=== PATIENT | female | born 1975 | race Two or more races ===

== ENCOUNTER 2019-08-17 08:07 | Observation (INO) | payer OTHER ==
[~2019-08-17] VITALS: Ht 167.6 cm; Wt 84.0 kg
[2019-08-17] MEDS ORDERED: ONDANSETRON 2MG/ML, 2ML IVPush ONE (08:30)
[2019-08-17] MEDS ORDERED: SODIUM CHLORIDE FLUSH 10ML SYR IVF ONE (08:30)
[2019-08-17] MEDS ORDERED: ONDANSETRON 2MG/ML, 2ML ONE (08:40)
[2019-08-17] MEDS ORDERED: MORPHINE SULFATE 4 MG/ML, 1ML ONE ×2 (08:41→10:09)
[2019-08-17 08:47] LABS: BASOPHILS # (AUTO) 0.04 x10^3/uL (0-0.1); BASOPHILS % (AUTO) 1 % (0-1); EOSINOPHILS # (AUTO) 0.09 x10^3/uL (0-0.4); EOSINOPHILS % (AUTO) 1 % (1-7); LYMPHOCYTES # (AUTO) 2.03 x10^3/uL (1-3.4); LYMPHOCYTES % (AUTO) 26 % (22-44); MD NO; MEAN CORPUSCULAR HGB CONC 33.4 g/dL (32.4-35.8); MEAN CORPUSCULAR VOLUME 90.1 fL (80-100); MEAN PLATELET VOLUME 8.7 fL (7.4-10.4); MONOCYTES # (AUTO) 0.56 x10^3/uL (0.2-0.8); MONOCYTES % (AUTO) 7 % (2-9); NEUTROPHILS % (AUTO) 65 % (42-75); PLATELET COUNT 222 x10^3/uL (130-400); RED BLOOD COUNT 4.87 x10^6/uL (3.82-5.3); RED CELL DISTRIBUTION WIDTH 13.7 % (9.6-15.2)
[2019-08-17 08:49] LABS: MICROSCOPIC NOT IND
[2019-08-17] MEDS: MORPHINE SULFATE 4 MG/ML, 1ML IVPush PRN ×2 (08:53→10:18)
[2019-08-17 08:54] LABS: CULTURE INDICATED? NO
--- NOTE | 2019-08-17 08:55 | NUR ---
LATE ENTRY: PT TO ED WITH N/V/RUQ ABD PAIN SINCE 199. NO MEDICAL HX OR ALLERGIES. UA SENT TO LAB. IV ESTABLISHED AND PT MEDICATED PER OCT, US AT BEDSIDE.
[2019-08-17 09:00] LABS: ALANINE AMINOTRANSFERASE 18 U/L (12-78); ANION GAP 7 mmol/L (5-15); CALCIUM 7.9 mg/dL (8.5-10.1); CHLORIDE 108 mmol/L (98-107); CREATININE 0.93 mg/dL (0.55-1.02)
[2019-08-17 09:04] LABS: ALKALINE PHOSPHATASE 83 U/L (45-117); BILIRUBIN,TOTAL 0.2 mg/dL (0.2-1.0); TOTAL PROTEIN 6.2 g/dL (6.4-8.2)
[2019-08-17] MEDS ORDERED: SODIUM CHLORIDE 0.9% 1,000 ML IV ONE (09:58)
[2019-08-17] MEDS ORDERED: ONDANSETRON 2MG/ML, 2ML IVPush PRN (10:00)
[2019-08-17] MEDS ORDERED: SODIUM CHLORIDE FLUSH 10ML SYR IVF PRN (10:00)
[2019-08-17] MEDS ORDERED: MORPHINE SULFATE 4 MG/ML, 1ML IVPush PRN (10:00)
[2019-08-17] MEDS ORDERED: CEFOTETAN PMX 1GM/50ML 50 ML IV ONE (10:00)
[2019-08-17] MEDS ORDERED: HYDROmorphone 1 MG/ML, 1ML INJ ONE ×2 (11:02→16:47)
[2019-08-17] MEDS ORDERED: DIPHENHYDRAMINE 50 MG/ML, 1ML ONE (11:09)
--- NOTE | 2019-08-17 11:11 | NUR ---
PROVIDER NOTIFIED OF LOCALIZED RASH AT IV SITE, APPROX 90% OF IV ABX HAVE INFUSED, PER PROVIDER GIVE BENADRYL 25MG AND CONTINUE THE REST OF ABX.
--- NOTE | 2019-08-17 11:12 | NUR ---
REPORT TO KASHIF RN, RN NOTIFIED OF LOCALIZED POSSIBLE REACTION AND BENADRYL ADMINISTRATION.
[2019-08-17] MEDS ORDERED: DIPHENHYDRAMINE 50 MG/ML, 1ML IVPush ONE (11:30)
[2019-08-17] MEDS ORDERED: HYDROmorphone 1 MG/ML, 1ML INJ IVPush PRN (11:30)
[2019-08-17 12:48] VITALS: BP 109/71
[2019-08-17] MEDS ORDERED: FENTANYL PF 250 MCG/5ML ONE (14:18)
[2019-08-17] MEDS ORDERED: MIDAZOLAM 1 MG/ML, 2ML ONE (14:18)
[2019-08-17] MEDS ORDERED: BUPIVACAINE/PF 0.5% ONE (14:21)
[2019-08-17] MEDS ORDERED: hydrALAzine 20 MG/ML, 1ML IV PRN (15:00)
[2019-08-17] MEDS ORDERED: ONDANSETRON 2MG/ML, 2ML IV PRN (15:00)
[2019-08-17] MEDS ORDERED: MEPERIDINE/PF 25MG/ML,1ML IVPush PRN (15:00)
[2019-08-17] MEDS ORDERED: FENTANYL PF 100 MCG/2ML IV PRN (15:00)
[2019-08-17] MEDS ORDERED: HYDROmorphone 2 MG/ML, 1ML IVPush PRN (15:00)
[2019-08-17] MEDS ORDERED: LORazepam 2 MG/ML, 1ML IVPush PRN (15:00)
[2019-08-17] MEDS ORDERED: OXYcodone 5 MG/5 ML ORAL.SOL UDC PO PRN (15:00)
[2019-08-17] MEDS ORDERED: LABETALOL 5MG/ML, 20ML IV PRN (15:00)
[2019-08-17] MEDS ORDERED: LIDOCAINE 2% 100MG/5ML SYRINGE ONE (15:03)
[2019-08-17] MEDS ORDERED: CEFAZOLIN 1,000 MG ONE (15:03)
[2019-08-17] MEDS ORDERED: ROCURONIUM 10MG/ML,5ML ONE (15:03)
[2019-08-17] MEDS ORDERED: PROPOFOL 10 MG/ML, 20ML ONE (15:03)
[2019-08-17] MEDS ORDERED: SUGAMMADEX 200 MG/2 ML IVPush ONE (15:03)
[2019-08-17] MEDS ORDERED: DEXAMETHASONE 4 MG/ML, 1ML ONE (15:03)
[2019-08-17 15:07] VITALS: BP 106/52
[2019-08-17] MEDS ORDERED: KETOROLAC 30 MG/1 ML ONE (16:09)
[2019-08-17] MEDS ORDERED: OXYcodone 5 MG/5 ML ORAL.SOL UDC ONE (16:09)
[2019-08-17] MEDS ORDERED: FENTANYL PF 100 MCG/2ML ONE (16:09)
[2019-08-17] MEDS ORDERED: KETOROLAC 30 MG/1 ML IV PRN (16:30)
[2019-08-17 18:35] VITALS: BP 115/76
[2019-08-17] MEDS: OXYcodone 5 MG/5 ML ORAL.SOL UDC PO PRN (20:55)
[2019-08-18 00:03] VITALS: BP 105/70
[2019-08-18 03:41] VITALS: BP 96/59
[2019-08-18] MEDS: OXYcodone 5 MG/5 ML ORAL.SOL UDC PO PRN ×2 (05:58→11:34)
[2019-08-18 06:34] VITALS: BP 91/67
[2019-08-18] MEDS ORDERED: OXYC-302 PO (11:15)
[2019-08-18 12:00] VITALS: BP 124/68
== END 2019-08-18 12:50 | disposition home or self-care (01) ==
LOC: ED 08:41 → EDIP 09:58 → INTOOBSV 09:58 → 4NE 12:04 → DCLOUNGE 08-18 12:36
PROVIDERS: ADMIT Surgery; ATTEND Surgery
DX: K80.00 Calculus of gallbladder with acute cholecystitis without obstruction (principal); Z79.899 Other long term (current) drug therapy
CPT/HCPCS: 36415; 47562; 76700; 80053; 81003; 83690; 84703; 85025; 88304; 93005; 96361; 96365; 96375; 96376; 99284; G0378; J0690; J1100; J1170; J1200; J1885; J2250; J2270; J2405; J2704; J3010; J3490; J7030; S0020

== ENCOUNTER 2019-09-11 13:18 | Emergency (ER) | payer SELFPAY ==
[~2019-09-11] VITALS: Ht 167.6 cm; Wt 77.2 kg
[~2019-09-11 13:18] MED LIST: OXYC-302 PO
--- NOTE | 2019-09-11 13:44 | NUR ---
PT HERE WITH C/O DIFFUSE ABDOMINAL PAIN, 05/20. PT STATES PAIN FEELS SIMILAR TO WHEN SHE HAD GALLBLADDER REMOVED. PT AAO X 4, DRESSED IN GOWN, ATTACHED TO MONITOR. MD AT BEDSIDE FOR EXAM. ROOM AIR, CALL LIGHT WITHIN REACH, NAD.
[2019-09-11 13:49] VITALS: BP 120/74
[2019-09-11] MEDS ORDERED: MORPHINE SULFATE 4 MG/ML, 1ML ONE (13:57)
[2019-09-11] MEDS ORDERED: ONDANSETRON 2MG/ML, 2ML ONE (13:57)
[2019-09-11] MEDS ORDERED: ONDANSETRON 2MG/ML, 2ML IVPush ONE (14:00)
[2019-09-11] MEDS ORDERED: SODIUM CHLORIDE FLUSH 10ML SYR IVF ONE (14:00)
[2019-09-11] MEDS ORDERED: MORPHINE SULFATE 4 MG/ML, 1ML IVPush PRN (14:00)
--- NOTE | 2019-09-11 14:00 | NUR ---
PIV ESTABLISHED, PT MEDICATED PER ORDERS, LABS DRAWN AND SENT.
[2019-09-11 14:27] LABS: BASOPHILS # (AUTO) 0.02 x10^3/uL (0-0.1); BASOPHILS % (AUTO) 0 % (0-1); EOSINOPHILS # (AUTO) 0.09 x10^3/uL (0-0.4); EOSINOPHILS % (AUTO) 2 % (1-7); LYMPHOCYTES # (AUTO) 1.23 x10^3/uL (1-3.4); LYMPHOCYTES % (AUTO) 20 % (22-44); MD NO; MEAN CORPUSCULAR HEMOGLOBIN 29.8 pg (27.0-34.8); MEAN CORPUSCULAR VOLUME 90.2 fL (80-100); MEAN PLATELET VOLUME 9.8 fL (7.4-10.4); MONOCYTES # (AUTO) 0.36 x10^3/uL (0.2-0.8); MONOCYTES % (AUTO) 6 % (2-9); NEUTROPHILS % (AUTO) 72 % (42-75); PLATELET COUNT 194 x10^3/uL (130-400); RED BLOOD COUNT 5.02 x10^6/uL (3.82-5.3); RED CELL DISTRIBUTION WIDTH 14.6 % (9.6-15.2)
[2019-09-11 14:32] LABS: ALBUMIN 3.5 g/dL (3.4-5.0); ANION GAP 8 mmol/L (5-15); CALCIUM 8.8 mg/dL (8.5-10.1); CHLORIDE 107 mmol/L (98-107)
[2019-09-11 14:36] LABS: ALANINE AMINOTRANSFERASE 177 U/L (12-78); ALKALINE PHOSPHATASE 144 U/L (45-117); BILIRUBIN,TOTAL 0.9 mg/dL (0.2-1.0); CREATININE 0.99 mg/dL (0.55-1.02)
--- NOTE | 2019-09-11 14:36 | NUR ---
PT AMBULATORY TO RESTROOM WITH STEADY BUT SLOW GAIT FOR URINE SAMPLE.
--- NOTE | 2019-09-11 14:41 | NUR ---
URINE COLLECTED AND SENT TO LAB. PT RESTING WITH NO COMPLAINTS.
[2019-09-11 15:07] LABS: HCG UR SG 1.014 (1.003-1.030); MICROSCOPIC NOT IND
[2019-09-11 15:08] LABS: CULTURE INDICATED? NO
--- NOTE | 2019-09-11 15:27 | NUR ---
US AT BEDSIDE.
--- NOTE | 2019-09-11 16:16 | NUR ---
PIV REMOVED WITH TIP INTACT.
--- NOTE | 2019-09-11 16:16 | NUR ---
Patient/Caregiver given discharge instructions and they have confirmed that they understand the instructions. Patient ambulatory with steady gait.
== END 2019-09-11 16:33 | disposition home or self-care (01) ==
LOC: ED 13:37
DX: R10.13 Epigastric pain (principal); R11.2 Nausea with vomiting, unspecified; R10.33 Periumbilical pain
CPT/HCPCS: 36415; 76700; 80053; 81003; 81025; 83690; 85025; 96374; 96375; 99284; J2270; J2405

== ENCOUNTER 2021-01-27 12:36 | Inpatient (IN) | payer MEDICAID, OTHER ==
[~2021-01-27] VITALS: Ht 167.6 cm; Wt 90.2 kg
[~2021-01-27 12:36] MED LIST changes: -OXYC-302 PO; +OXYC1TAB14 PO
--- NOTE | 2021-01-27 13:00 | NUR ---
PT BROUGHT BACK FROM TRIAGE WITH CHIEF COMPLAINT OF LEFT SHOULDER PAIN WITH RIGHT ABD PAIN STARTING AT 3 AM THIS MORNING
[2021-01-27] MEDS ORDERED: ONDANSETRON 2MG/ML, 2ML ONE (13:20)
[2021-01-27] MEDS ORDERED: MORPHINE SULFATE 4 MG/ML, 1ML ONE ×2 (13:20→14:07)
[2021-01-27] MEDS: MORPHINE SULFATE 4 MG/ML, 1ML IVPush PRN ×2 (13:23→14:10)
[2021-01-27] MEDS ORDERED: SODIUM CHLORIDE 0.9% 1,000ML IVBOLUS ONE (13:30)
[2021-01-27] MEDS ORDERED: ONDANSETRON 2MG/ML, 2ML IVPush ONE (13:30)
[2021-01-27 13:45] LABS: BASOPHILS % (AUTO) 0 % (0-1); EOSINOPHILS % (AUTO) 0 % (1-7); LYMPHOCYTES % (AUTO) 6 % (22-44); MEAN CORPUSCULAR HGB CONC 33.8 g/dL (32.4-35.8); MEAN PLATELET VOLUME 9.6 fL (7.4-10.4); MONOCYTES % (AUTO) 4 % (2-9); NEUTROPHILS % (AUTO) 90 % (42-75); PLATELET COUNT 155 x10^3/uL (130-400); RED BLOOD COUNT 5.13 x10^6/uL (3.82-5.3); RED CELL DISTRIBUTION WIDTH 14.2 % (9.6-15.2)
[2021-01-27 13:51] LABS: ALBUMIN 2.6 g/dL (3.4-5.0); ANION GAP 8 mmol/L (5-15); CALCIUM 8.4 mg/dL (8.5-10.1); CHLORIDE 110 mmol/L (98-107)
--- NOTE | 2021-01-27 13:51 | NUR ---
Pt resting in bed, call light in reach
[2021-01-27 13:56] LABS: ALANINE AMINOTRANSFERASE 22 U/L (12-78); ALKALINE PHOSPHATASE 92 U/L (45-117); BILIRUBIN,TOTAL 0.8 mg/dL (0.2-1.0); CREATININE 0.77 mg/dL (0.55-1.02); TOTAL PROTEIN 6.5 g/dL (6.4-8.2); TROPONIN I 0.052 ng/mL (0.000-0.045)
--- NOTE | 2021-01-27 14:49 | NUR ---
Pt to imaging
--- NOTE | 2021-01-27 14:58 | NUR ---
REPORT FROM RONAK ALLEN. PT TO CT AT THIS TIME. ERP AWARE OF DDIMER AND TROP. EKG COMPLETED UPON ARRIVAL TO ED.
[2021-01-27] MEDS ORDERED: OMNIPAQUE 350 MG/ML, 100ML BOTTLE ONE (15:03)
[2021-01-27] MEDS ORDERED: DEXA6TAB6 PO (15:16)
[2021-01-27] MEDS ORDERED: GUAI600T PO (15:16)
[2021-01-27] MEDS ORDERED: CHOL10003 PO (15:16)
[2021-01-27] MEDS ORDERED: ZINC100T PO (15:16)
[2021-01-27] MEDS ORDERED: IPRA3AMP30 INH (15:16)
--- NOTE | 2021-01-27 15:16 | NUR ---
PT RETURNED FROM CT. CALM/DROWSY. PT REPORTS IMPROVED PAIN WITH RX PROVIDED. BP/SPO2/ECG MONITORING IN PLACE. SINUS TACH ON MONITOR, HR 100'S; SPO2 90-92% ON RA.
[2021-01-27] MEDS ORDERED: AZITHROMYCIN 500 MG in SODIUM CHLORIDE 0.9% 250 ML IV ONE (15:30)
[2021-01-27] MEDS ORDERED: CEFTRIAXONE 1,000 MG in DEXTROSE 5% 50 ML IVPB ONE (15:30)
[2021-01-27] MEDS ORDERED: HEPARIN 5,000 UNITS/ML, 1ML ONE (15:43)
[2021-01-27] MEDS ORDERED: HEPARIN 25,000 UNITS/250ML PMX 250 ML ONE (15:44)
[2021-01-27 15:56] LABS: PLATELET (DIC) 127 x10^3/uL (130-400)
[2021-01-27] MEDS ORDERED: HEPARIN 25,000 UNITS/250ML PMX 250 ML IV PRN (16:00)
[2021-01-27] MEDS ORDERED: HEPARIN 5,000 UNITS/ML, 1ML IV PRN (16:00)
[2021-01-27] MEDS ORDERED: HEPARIN 5,000 UNITS/ML, 1ML IV ONE (16:00)
[2021-01-27 16:12] LABS: C-REACTIVE PROTEIN, QUANT 8.6 mg/dL (0.02-0.49)
[2021-01-27 16:14] LABS: D-DIMER (DIC) 4.63 ug/mlFEU (0.00-0.52); FIBRINOGEN 567 mg/dL (200-340); PROTIME 10.4 Seconds (9.6-11.5); PTT 24 Seconds (25-31)
--- NOTE | 2021-01-27 16:16 | NUR ---
POC IS ADMIT. PT AWARE AND DEMONSTRATES UNDERSTANDING. SECOND PIV PLACED. HEPARIN AND ABX INITIATED. BC AND INITIAL ANTI XA DRAWN PRIOR TO ADMIN. PT CO NAUSEA. ERP AWARE. AWAITING ORDER
--- NOTE | 2021-01-27 16:23 | NUR ---
PER ERP ORDER, HEPARIN BOLUS AND GTT INITIATED. ORDER CANCELED SHORTLY THEREAFTER BY HOSPITALIST PHYSICIAN. HOSPITALIST CALLED WHO STATED THAT SHE WILL NOT BE CONTINUING HEPARIN PROTOCOL. PHYSICIAN AWARE OF BOLUS/GTT GIVEN AND REQUESTED RN TO STOP GTT AND CALL PHARMACY TO MAKE AWARE FOR LOVENOX SCHEDULING. PHARMACIST CALLED AND MADE AWARE. HEPARIN GTT OFF.
[2021-01-27] MEDS ORDERED: ONDANSETRON ODT 4 MG ONE ×2 (16:27→16:43)
[2021-01-27] MEDS ORDERED: ENOXAPARIN 80 MG/0.8 ML SQ SCH (16:30)
--- NOTE | 2021-01-27 16:32 | NUR ---
REPORT CALLED TO RONAK KHANNA. PT PREPARED FOR TRANSPORT.
[2021-01-27] MEDS ORDERED: AMPICILLIN/SULBACTAM 3 GM in SODIUM CHLORIDE 0.9% 100 ML IV SCH (16:46)
--- NOTE | 2021-01-27 16:49 | NUR ---
PT MEDICATED PER VERBAL ORDER W 4MG PO ZOFRAN. INITIAL TABLET DROPPED, SECOND PULLED. PT TRANSFERED TO FLOOR WITH TECH X2 Addendum: 01/27/21 at 1650 by LWEGENER ROCEPHIN FINISHED, NO S/S OF ABX RXN NOTED. SECOND ABX TRANSPORTED TO FLOOR WITH PT. FLOOR RN AWARE.
[2021-01-27] MEDS ORDERED: ONDANSETRON 2MG/ML, 2ML IVPush PRN (17:00)
[2021-01-27] MEDS ORDERED: ONDANSETRON ODT 4 MG PO ONE (17:00)
[2021-01-27] MEDS ORDERED: LEVO88TA4 PO (17:10)
[2021-01-27] MEDS: ENOXAPARIN 80 MG/0.8 ML SQ SCH (18:34)
[2021-01-27] MEDS: ASCORBIC ACID 500 MG TABLET PO SCH (18:34)
[2021-01-27 20:23] LABS: TROPONIN I < 0.015 ng/mL (0.000-0.045)
[2021-01-27 20:58] VITALS: BP 105/73
[2021-01-27] MEDS ORDERED: CHOLECALCIFEROL 1,000 UNIT TABLET PO SCH (21:00)
[2021-01-27] MEDS ORDERED: TEMAZEPAM 15 MG CAPSULE PO PRN (21:00)
[2021-01-27] MEDS: GUAIFENESIN ER 600 MG TABLET PO SCH (21:35)
[2021-01-27] MEDS: ACETAMINOPHEN 325 MG TABLET PO PRN (21:36)
[2021-01-27 21:56] LABS: MICROSCOPIC INDICATED
[2021-01-27] MEDS: FAMOTIDINE 20 MG TABLET PO SCH (22:39)
[2021-01-27] MEDS: DIPHENHYDRAMINE 50 MG/ML, 1ML IVPush PRN (22:39)
[2021-01-28] MEDS: AMPICILLIN/SULBACTAM 3 GM in SODIUM CHLORIDE 0.9% 100 ML IV SCH ×2 (00:11→06:15)
[2021-01-28] MEDS ORDERED: methylPREDNISolone SOD SUCC 125 MG/2 ML IVPush ONE (01:30)
[2021-01-28 02:26] LABS: TROPONIN I < 0.015 ng/mL (0.000-0.045)
[2021-01-28 02:37] VITALS: BP 104/72
[2021-01-28] MEDS: ENOXAPARIN 80 MG/0.8 ML SQ SCH ×2 (05:58→17:31)
[2021-01-28] MEDS: ACETAMINOPHEN 325 MG TABLET PO PRN (06:15)
[2021-01-28 08:35] VITALS: BP 106/70
[2021-01-28] MEDS: GUAIFENESIN ER 600 MG TABLET PO SCH ×2 (08:59→20:47)
[2021-01-28] MEDS: ASCORBIC ACID 500 MG TABLET PO SCH ×2 (08:59→17:31)
[2021-01-28] MEDS ORDERED: ZINC SULFATE 220 MG CAPSULE PO SCH (09:00)
[2021-01-28] MEDS: FAMOTIDINE 20 MG TABLET PO SCH ×2 (09:00→20:49)
[2021-01-28] MEDS ORDERED: DEXAMETHASONE 4 MG/ML, 1ML IVPush SCH (09:00)
[2021-01-28] MEDS: LEVOTHYROXINE 88 MCG TABLET PO SCH (09:00)
[2021-01-28] MEDS ORDERED: CHOLECALCIFEROL 5,000u TAB PO SCH (09:00)
[2021-01-28] MEDS: DIPHENHYDRAMINE 50 MG/ML, 1ML IVPush PRN (09:01)
[2021-01-28] MEDS ORDERED: OMNIPAQUE 350 MG/ML, 75ML BOTTLE ONE (12:29)
[2021-01-28] MEDS: HYDROcodone/APAP 5/325 TABLET PO PRN ×2 (12:54→20:48)
[2021-01-28 12:56] VITALS: BP 105/72
[2021-01-28 20:43] VITALS: BP 121/78
[2021-01-29 02:50] VITALS: BP 108/69
[2021-01-29 05:32] LABS: MEAN CORPUSCULAR HEMOGLOBIN 29.5 pg (27.0-34.8); MEAN CORPUSCULAR HGB CONC 33.4 g/dL (32.4-35.8); MEAN PLATELET VOLUME 10.2 fL (7.4-10.4); PLATELET COUNT 116 x10^3/uL (130-400); RED BLOOD COUNT 3.95 x10^6/uL (3.82-5.3); RED CELL DISTRIBUTION WIDTH 14.3 % (9.6-15.2)
[2021-01-29] MEDS: LEVOTHYROXINE 88 MCG TABLET PO SCH (05:33)
[2021-01-29] MEDS: ENOXAPARIN 80 MG/0.8 ML SQ SCH (05:33)
[2021-01-29 05:41] LABS: HCT (SEDRATE) 34.2 % (34.6-47.8)
[2021-01-29 05:47] LABS: CHLORIDE 109 mmol/L (98-107)
[2021-01-29 05:59] LABS: ALANINE AMINOTRANSFERASE 55 U/L (12-78); ALBUMIN 1.9 g/dL (3.4-5.0); ALKALINE PHOSPHATASE 94 U/L (45-117); ANION GAP 7 mmol/L (5-15); BILIRUBIN,TOTAL 0.4 mg/dL (0.2-1.0); CALCIUM 8.3 mg/dL (8.5-10.1); CREATININE 0.62 mg/dL (0.55-1.02); TOTAL PROTEIN 5.8 g/dL (6.4-8.2)
[2021-01-29 06:08] LABS: <PLATELET ESTIMATE> DECREASED; <PLT MORPHOLOGY> NORMAL PLT MORPH; <RBC MORPHOLOGY> NORMAL; BAND#(MANUAL) 0.89 x10^3/uL; BANDS%(MANUAL) 5 % (0-7); LYMPH#(MANUAL) 1.25 x10^3/uL (1-3.4); LYMPHS% (MANUAL) 7 % (22-44); MONOS#(MANUAL) 1.07 x10^3/uL (0.3-2.7); MONOS% (MANUAL) 6 % (2-9); SEGS% (MANUAL) 82 % (42-75)
[2021-01-29] MEDS ORDERED: FLUCONAZOLE 50 MG TABLET PO ONE (08:00)
[2021-01-29 08:15] VITALS: BP 112/73
[2021-01-29] MEDS ORDERED: FLUCONAZOLE 100 MG TABLET ONE (09:00)
[2021-01-29] MEDS: APIXABAN 5 MG TABLET PO SCH ×3 (09:00→21:00)
[2021-01-29] MEDS ORDERED: APIXABAN 5 MG TABLET ONE (09:02)
[2021-01-29] MEDS: HYDROcodone/APAP 5/325 TABLET PO PRN (09:10)
[2021-01-29] MEDS: GUAIFENESIN ER 600 MG TABLET PO SCH ×2 (09:11→20:14)
[2021-01-29] MEDS: FAMOTIDINE 20 MG TABLET PO SCH ×2 (09:11→20:14)
[2021-01-29] MEDS ORDERED: POLYETHYLENE GLYCOL 17 GM PACKET ONE (12:27)
[2021-01-29] MEDS ORDERED: POLYETHYLENE GLYCOL 17 GM PACKET NG ONE (12:30)
[2021-01-29 12:53] VITALS: BP 108/68
[2021-01-29] MEDS: DIPHENHYDRAMINE 50 MG/ML, 1ML IVPush PRN (13:45)
[2021-01-29 18:36] VITALS: BP 107/70
[2021-01-30 01:10] VITALS: BP 106/69
[2021-01-30 05:24] LABS: BASOPHILS % (AUTO) 0 % (0-1); EOSINOPHILS % (AUTO) 0 % (1-7); LYMPHOCYTES % (AUTO) 12 % (22-44); MEAN CORPUSCULAR HGB CONC 33.6 g/dL (32.4-35.8); MEAN PLATELET VOLUME 9.9 fL (7.4-10.4); MONOCYTES % (AUTO) 8 % (2-9); NEUTROPHILS % (AUTO) 80 % (42-75); PLATELET COUNT 120 x10^3/uL (130-400); RED BLOOD COUNT 3.87 x10^6/uL (3.82-5.3); RED CELL DISTRIBUTION WIDTH 14.1 % (9.6-15.2)
[2021-01-30 05:31] LABS: ANION GAP 5 mmol/L (5-15); CALCIUM 8.2 mg/dL (8.5-10.1); CHLORIDE 111 mmol/L (98-107)
[2021-01-30 05:34] LABS: ALANINE AMINOTRANSFERASE 39 U/L (12-78); ALKALINE PHOSPHATASE 82 U/L (45-117); BILIRUBIN,TOTAL 0.2 mg/dL (0.2-1.0); CREATININE 0.59 mg/dL (0.55-1.02); TOTAL PROTEIN 5.7 g/dL (6.4-8.2)
[2021-01-30] MEDS: LEVOTHYROXINE 88 MCG TABLET PO SCH (06:26)
[2021-01-30 07:12] VITALS: BP 128/79
[2021-01-30] MEDS: GUAIFENESIN ER 600 MG TABLET PO SCH ×2 (08:13→21:57)
[2021-01-30] MEDS: FAMOTIDINE 20 MG TABLET PO SCH ×2 (08:13→21:57)
[2021-01-30] MEDS: APIXABAN 5 MG TABLET PO SCH ×4 (08:13→21:57)
[2021-01-30] MEDS: HYDROcodone/APAP 5/325 TABLET PO PRN (11:13)
[2021-01-30] MEDS ORDERED: POLYETHYLENE GLYCOL 17 GM PACKET PO ONE (12:00)
[2021-01-30] MEDS ORDERED: FLUCONAZOLE 100 MG TABLET PO ONE (12:00)
[2021-01-30] MEDS: NYSTATIN CRM 15GM TP SCH ×2 (12:08→22:10)
[2021-01-30] MEDS: SENNA/DOCUSATE TABLET PO SCH (12:15)
[2021-01-30 12:35] VITALS: BP 118/74
[2021-01-30 15:15] VITALS: BP 122/80
[2021-01-30 18:50] LABS: ANA SCREEN NEGATIVE (Negative)
[2021-01-30 19:35] VITALS: BP 106/70
[2021-01-31 02:06] VITALS: BP 114/75
[2021-01-31] MEDS: POLYETHYLENE GLYCOL 17 GM PACKET PO PRN (06:11)
[2021-01-31] MEDS: HYDROcodone/APAP 5/325 TABLET PO PRN ×2 (06:12→14:05)
[2021-01-31] MEDS: LEVOTHYROXINE 88 MCG TABLET PO SCH (06:12)
[2021-01-31 07:45] VITALS: BP 125/84
[2021-01-31] MEDS ORDERED: MORPHINE SULFATE 4 MG/ML, 1ML ONE (08:52)
[2021-01-31] MEDS ORDERED: NITROGLYCERIN 0.4 MG BOTTLE (25 TABS) SL PRN (09:00)
[2021-01-31] MEDS ORDERED: MORPHINE SULFATE 4 MG/ML, 1ML IVPush PRN (09:00)
[2021-01-31] MEDS ORDERED: BISACODYL 10 MG SUPP PR PRN (09:00)
[2021-01-31] MEDS ORDERED: MORPHINE SULFATE 4 MG/ML, 1ML IVPush ONE (09:00)
[2021-01-31] MEDS ORDERED: FLUCONAZOLE 100 MG TABLET PO ONE (09:00)
[2021-01-31] MEDS: APIXABAN 5 MG TABLET PO SCH ×3 (09:00→20:31)
[2021-01-31 09:15] LABS: BASOPHILS % (AUTO) 0 % (0-1); EOSINOPHILS % (AUTO) 1 % (1-7); LYMPHOCYTES % (AUTO) 19 % (22-44); MEAN CORPUSCULAR HEMOGLOBIN 29.5 pg (27.0-34.8); MEAN CORPUSCULAR HGB CONC 33.1 g/dL (32.4-35.8); MEAN PLATELET VOLUME 8.8 fL (7.4-10.4); MONOCYTES % (AUTO) 7 % (2-9); NEUTROPHILS % (AUTO) 73 % (42-75); PLATELET COUNT 128 x10^3/uL (130-400); RED BLOOD COUNT 4.41 x10^6/uL (3.82-5.3)
[2021-01-31 09:23] LABS: ALANINE AMINOTRANSFERASE 37 U/L (12-78); ALBUMIN 2.2 g/dL (3.4-5.0); ANION GAP 9 mmol/L (5-15); CALCIUM 8.4 mg/dL (8.5-10.1); CHLORIDE 109 mmol/L (98-107)
[2021-01-31 09:28] LABS: ALKALINE PHOSPHATASE 93 U/L (45-117); BILIRUBIN,TOTAL 0.3 mg/dL (0.2-1.0); TROPONIN I < 0.015 ng/mL (0.000-0.045)
[2021-01-31] MEDS: SENNA/DOCUSATE TABLET PO SCH (09:44)
[2021-01-31] MEDS: GUAIFENESIN ER 600 MG TABLET PO SCH ×2 (09:44→20:31)
[2021-01-31] MEDS: NYSTATIN CRM 15GM TP SCH ×2 (09:45→20:30)
[2021-01-31] MEDS: FAMOTIDINE 20 MG TABLET PO SCH ×2 (09:47→20:30)
[2021-01-31 13:16] VITALS: BP 108/72
[2021-01-31] MEDS: ACETAMINOPHEN 325 MG TABLET PO PRN (18:24)
[2021-01-31 18:36] VITALS: BP 103/69
[2021-01-31] MEDS ORDERED: SUMATRIPTAN 25 MG TABLET PO PRN (21:00)
[2021-01-31] MEDS ORDERED: SUMATRIPTAN 50 MG TABLET ONE (21:28)
[2021-02-01 03:36] VITALS: BP 117/78
[2021-02-01] MEDS: HYDROcodone/APAP 5/325 TABLET PO PRN (05:00)
[2021-02-01] MEDS: LEVOTHYROXINE 88 MCG TABLET PO SCH (05:00)
[2021-02-01] MEDS: POLYETHYLENE GLYCOL 17 GM PACKET PO PRN (05:00)
[2021-02-01 07:26] VITALS: BP 100/75
[2021-02-01] MEDS: APIXABAN 5 MG TABLET PO SCH (08:13)
[2021-02-01] MEDS: FAMOTIDINE 20 MG TABLET PO SCH (08:13)
[2021-02-01] MEDS: GUAIFENESIN ER 600 MG TABLET PO SCH (08:13)
[2021-02-01] MEDS: SENNA/DOCUSATE TABLET PO SCH (08:14)
[2021-02-01] MEDS: NYSTATIN CRM 15GM TP SCH (08:14)
[2021-02-01] MEDS ORDERED: ONDA4TAB7 PO (12:03)
[2021-02-01] MEDS ORDERED: SENN-211 PO (12:03)
[2021-02-01] MEDS ORDERED: HYDR-2214 PO (12:03)
[2021-02-01] MEDS ORDERED: BISA10SU4 PR (12:03)
[2021-02-01] MEDS ORDERED: APIX5TAB PO (12:03)
[2021-02-01] MEDS ORDERED: POLY17PO5 PO (12:03)
[2021-02-01 14:03] VITALS: BP 123/85
== END 2021-02-01 14:10 | disposition home or self-care (01) | DRG 175 ==
LOC: ED 16:49 → EDIP 16:50 → 5SO 16:58 → 4NE 01-30 15:08
PROVIDERS: ADMIT Internal Medicine; ATTEND Family Medicine
DX: I26.99 Other pulmonary embolism without acute cor pulmonale (principal); J96.01 Acute respiratory failure with hypoxia; J18.9 Pneumonia, unspecified organism; Z20.822 Contact with and (suspected) exposure to COVID-19; E03.9 Hypothyroidism, unspecified; R31.9 Hematuria, unspecified; E66.9 Obesity, unspecified; Z90.49 Acquired absence of other specified parts of digestive tract; Z86.16 Personal history of COVID-19; Z87.442 Personal history of urinary calculi; Z87.01 Personal history of pneumonia (recurrent); Z88.0 Allergy status to penicillin; Z68.32 Body mass index [BMI] 32.0-32.9, adult; Z79.899 Other long term (current) drug therapy
CPT/HCPCS: 36415; 70487; 71045; 71275; 74018; 74177; 80053; 80074; 81001; 82595; 82728; 83605; 83615; 83880; 84145; 84443; 84484; 84703; 85025; 85049; 85379; 85384; 85520; 85610; 85651; 85730; 86038; 86140; 86160; 86256; 86430; 86480; 87040; 87806; 93005; 93306; 93356; 93970; 99285; G0378; J0295; J0696; J1100; J1644; J1650; J2405; Q0162; Q9967; U0005; G0475; J1200; J2270; J2930; J7030; U0003

== ENCOUNTER 2021-05-09 15:47 | Emergency (ER) | payer MEDICAID ==
[~2021-05-09] VITALS: Ht 167.6 cm; Wt 85.5 kg
[2021-05-09 18:18] VITALS: BP 119/76
== END 2021-05-09 18:34 | disposition home or self-care (01) ==
LOC: ED 16:00
DX: N30.00 Acute cystitis without hematuria (principal); L50.9 Urticaria, unspecified; R21 Rash and other nonspecific skin eruption; R19.7 Diarrhea, unspecified; Z90.49 Acquired absence of other specified parts of digestive tract
CPT/HCPCS: 36415; 80048; 81001; 85025; 87077; 87086; 99284; J7512; Q0163